=== PATIENT | male | born 1965 | race Caucasian/White ===

== ENCOUNTER 2017-08-07 05:56 | Emergency (ER) | payer OTHER, SELFPAY ==
[2017-08-07 05:59] VITALS: BP 141/92; PULSE 88; RESP 18; TEMP 36.6; O2SAT 97; BMI 33.2
[2017-08-07 06:00] VITALS: O2SAT 95
--- NOTE | 2017-08-07 06:05 | ED.VISSUMM ---
- ER Visit Summary Date of Service: 08/07/17 Chief Complaint: [] Cough History of Present Illness: The patient is a 52 M [] complaining of cough, sore throat, body aches during the peak of flu season. Patient denies fevers. Denies chest pain or shortness of breath. Reports he is supposed to be at his [employer] weekend drill but feels too ill to participate. Physical Examination: [] Afebrile, vital signs stable. Cardiovascular exam is regular rate and rhythm. Lungs are clear to auscultation. Abdomen is soft and nontender. Remainder of exam is unremarkable. Test Results: [] None. Emergency Department Course and Treatment: [] Patient has a benign presentation. Clear lung sounds. I do not feel that he warrants diagnostic imaging at this time. He was given a prescription for Tessalon Perles and a note for excuse her from work today. He was encouraged to hydrate and follow-up with his primary care physician. Treatment Plan: [] Follow-up with PCP. Disposition: [] Discharge, stable. Impression: [] URI This note was generated with [employer] dictation software. It may contain incorrect words, spelling, and punctuation that were not noted in review of the chart prior to signing ED Disposition - Plan for ED Patient: Chief Complaint: Cough [facility] [[facility] Provider] -
--- NOTE | 2017-08-07 06:08 | ED.DCSUM_ITS ---
- ER Visit Summary Date of Service: 08/07/17 Chief Complaint: [] Cough History of Present Illness: The patient is a 52 M [] complaining of cough, sore throat, body aches during the peak of flu season. Patient denies fevers. Denies chest pain or shortness of breath. Reports he is supposed to be at his [employer] weekend drill but feels too ill to participate. Physical Examination: [] Afebrile, vital signs stable. Cardiovascular exam is regular rate and rhythm. Lungs are clear to auscultation. Abdomen is soft and nontender. Remainder of exam is unremarkable. Test Results: [] None. Emergency Department Course and Treatment: [] Patient has a benign presentation. Clear lung sounds. I do not feel that he warrants diagnostic imaging at this time. He was given a prescription for Tessalon Perles and a note for excuse her from work today. He was encouraged to hydrate and follow-up with his primary care physician. Treatment Plan: [] Follow-up with PCP. Disposition: [] Discharge, stable. Impression: [] URI This note was generated with [employer] dictation software. It may contain incorrect words, spelling, and punctuation that were not noted in review of the chart prior to signing ED Disposition - Plan for ED Patient: Chief Complaint: Cough [facility] [[facility]] -
--- NOTE | 2017-08-07 06:08 | ED.DEP ---
ED Disposition - Plan for ED Patient: Disposition: Home or Assisted Living Chief Complaint: Cough Instructions: ED Upper Resp Infec No Abx Tx Prescriptions: Benzonatate [Tessalon Perle] 100 mg PO TID PRN PRN #15 cap PRN Reason: Cough [facility] [Primary [facility] Provider] -
[2017-08-07 06:09] VITALS: RESP 18
[2017-08-07] MEDS: Benzonatate 100 MG Capsule PO (06:30)
== END 2017-08-07 06:31 | disposition home or self-care (01) ==
LOC: ED 06:23
PROVIDERS: Emergency Provider Emergency Medicine
DX: J06.9 Acute upper respiratory infection, unspecified (principal); K21.9 Gastro-esophageal reflux disease without esophagitis; F32.9 Major depressive disorder, single episode, unspecified
CPT/HCPCS: 99282

== ENCOUNTER 2018-06-17 09:58 | Emergency (ER) | payer OTHER, SELFPAY ==
[2018-06-17 09:59] VITALS: BP 143/90; PULSE 98; RESP 20; TEMP 36.6; O2SAT 98; BMI 33.6
--- NOTE | 2018-06-17 10:11 | US_ITS ---
STUDY: SCROTUM ULTRASOUND REASON FOR EXAM: Male, 53 years old. Pain. TECHNIQUE: Ultrasound evaluation of the scrotum was performed with color Doppler and static felder-scale imaging. COMPARISON: None. FINDINGS: RIGHT TESTICLE INTRATESTICULAR: There is a normal size of the right testicle. The right testicle measures 3.8 x 2.6 x 2.1 cm. There is a homogenous echotexture. There is normal arterial and normal venous vascularity. There is no demonstrated right testicular mass or cyst. EXTRATESTICULAR: The epididymis is normal in size. The epididymis head measures 1.2 cm. There is normal vascularity of the epididymis. There is 0.6 cm cyst. There is a moderate size hydrocele. There is no demonstrated varicocele. There is no demonstrated extratesticular mass or cyst. LEFT TESTICLE INTRATESTICULAR: There is a normal size of the left testicle. The left testicle measures 3.4 x 2.6 x 2.2 cm. There is a homogenous echotexture. There is normal arterial and normal venous vascularity. There is no demonstrated left testicular mass or cyst. EXTRATESTICULAR: The epididymis is normal in size. The epididymis head measures 1.3 cm. There is normal vascularity of the epididymis. There is no demonstrated epididymal cystic structure. There is a moderate size hydrocele. There is 0.5 cm scrotal tamra. There is no demonstrated varicocele. There is no demonstrated extratesticular mass or cyst. US/Testicular with Arterial Flow IMPRESSION: There is no intratesticular mass. Normal blood flow. Bilateral hydroceles. Left scrotal tamra. Electronically Signed: Tacho Ibarra MD at 12:54 EST , Service support ,
--- NOTE | 2018-06-17 10:11 | CT_ITS ---
STUDY: CT ABDOMEN AND PELVIS WITH CONTRAST REASON FOR EXAM: Male, 53 years old. Abdominal pain. RADIATION DOSAGE (If Supplied By Facility): CTDIvol = ( 16.92 ) mGy, DLP = ( 1532.22 ) mGycm TECHNIQUE: Transaxial images were obtained from the dome of the diaphragm to the symphysis pubis with oral contrast. 100 ml of Isovue 300 contrast was administered. Sagittal and coronal images were reconstructed. Individualized dose optimization techniques were used for this CT. COMPARISON: Comparison is made with prior study dated April 22, 2015. FINDINGS: The visualized lung bases are unremarkable. The visualized portions of the heart are within normal limits. There is decreased attenuation of the liver consistent with steatosis. The patient is status post cholecystectomy. Normal spleen. Normal pancreas. Normal bilateral adrenal glands. Normal right kidney. Normal left kidney. There is a moderate sized hiatal hernia. Normal small intestine. There is diverticulosis, with thickening of the colon wall, and pericolonic inflammation changes consistent with acute diverticulitis. The appendix is visualized and appears normal. Normal abdominal aorta. Normal inferior vena cava. Normal retroperitoneum. Normal urinary bladder. There is a right-sided inguinal hernia containing adipose tissue. Normal osseous structures. CT/Abdomen/Pelvis WITH Contrast IMPRESSION: Findings in keeping with a noncomplicated sigmoid diverticulitis. Fatty infiltration of the liver. Electronically Signed: Silvio Hawkins MD at 12:38 EST Tel [phone], Service support ,
[2018-06-17] MEDS: Morphine 4 MG/ML Syringe IV (10:25)
[2018-06-17] MEDS: Ondansetron 4 MG/2 ML Vial IV (10:25)
[2018-06-17 10:34] LABS: Absolute Lymphocyte Count 1.36 X10^3/ul (0.83-4.51); Absolute Neutrophil Count 9.7 X10^3/uL (2.0-7.7); Basophil# 0.02 X10^3/uL; Basophil% 0.2 % (0-1); Eosinophil# 0.05 X10^3/uL; Eosinophils% 0.4 % (0-5); Hematocrit 46.4 % (40-54); Hemoglobin 15.7 g/dl (13.0-16.5); Lymphocyte # 1.36 X10^3/ul (4.0); Lymphocyte % 10.6 % (19-41); Mean Corp Hgb Conc 33.8 g/gl (32-36); Mean Corpuscular Hgb 30.4 pg (27.0-32.0); Mean Corpuscular Volume 89.9 fL (80-94); Mean Platelet Vol. 9.5 fl (6.2-12.0); Monocyte# 1.67 X10^3/uL; Neutrophil # 9.72 X10^3/uL (2.7-7.7); Neutrophil % 75.7 % (47-70); Platelet Count 201 K/mm3 (150-450); RBC Distribution Width CV 12.7 % (11.6-14.6); RBC Distribution Width SD 41.6 fl (35.1-43.9); Red Blood Count 5.16 M/mm3 (4.6-6.2); White Blood Count 12.8 K/mm3 (4.4-11.0)
[2018-06-17 10:35] LABS: Differential Indicated SCAN CRITERIA MET; POSITIVE COUNT NO; POSITIVE DIFFERENTIAL YES; POSITIVE MORPHOLOGY NO
[2018-06-17 10:42] LABS: Bacteria 0 SEEN /hpf (None Seen); Mucous, Urine 0 SEEN /hpf (<or=2+); Squamous Epithelial Cells - UA 0 SEEN /hpf (0-5); White Blood Cells 0 SEEN /hpf (0-5)
[2018-06-17 10:44] LABS: Anion Gap 10 (5-15); BUN 10 mg/dL (7-18); BUN/Creat Ratio 13.7 RATIO (10-20); Chloride 102 mmol/L (98-107); Creatinine, Serum 0.73 mg/dL (0.70-1.30); EST Glomerular Filtration Rate 119 mL/min (>60); Est Glom Filt Rate - Afr Amer 144 mL/min (>60); Estimated Creatinine Clearance 109.41 ml/min; Glucose 104 mg/dL (74-106); Potassium 3.8 mmol/L (3.5-5.1); Sodium Level 138 mmol/L (136-145)
[2018-06-17 10:44] LABS: Color, Urine Yellow (Yellow); Glucose, Dipstick Normal (Normal); Ketone-Dipstick Negative (Negative); Leukocyte Esterase-Dipstick Negative /ul (Negative); Nitrite-Dipstick Negative (Negative); Occult Blood-Urine 25 /ul (Negative); Protein-Dipstick Negative (Negative); Urine Bilirubin Dipstick Negative (Negative); Urine Clarity Clear (Clear); Urine Urobilinogen Normal (Normal)
[2018-06-17 10:50] LABS: Red Blood Cells-Urine 0-5 SEEN /hpf (0-5)
--- NOTE | 2018-06-17 10:52 | ED.DCSUM_ITS ---
- ER Visit Summary Date of Service: 06/17/18 Chief Complaint: Abdominal pain History of Present Illness: The patient is a 53 M presenting with abdominal pain. Patient states this started last night. He has pain in his lower abdomen and lower left side. He has pain with urination. He has a history of div erticulitis. He denies fever. Denies nausea, vomiting, diarrhea. Denies constipation. Denies blood in his stool. Denies other complaints. Physical Examination: Vitals are stable. Patient is afebrile. Alert no acute distress. HEENT exam is unremarkable. Neck is supple. Lungs are clear and equal bilaterally. Heart is regular rate and rhythm. Abdomen is soft suprapubic and left lower quadrant tenderness with no rebound or guarding : Left testicular tenderness, normal lie Extremities are unremarkable. Skin is warm and dry. No focal neurologic deficit. Remainder of exam is unremarkable. Emergency Department Course and Treatment: Patient given morphine, Zofran. CBC shows white count 12.8. Chemistries unremarkable. Urinalysis unremarkable. CT abdomen pelvis with IV and oral contrast shows findings in keeping with a noncomplicated sigmoid diverticulitis. Fatty infiltration of the liver. Testicular ultrasound shows there is no intratesticular mass. Normal blood flow. Bilateral hydroceles. Left scrotal tamra. On reevaluation, patient is resting comfortably and is feeling improved. He is given Cipro and Flagyl and a prescription for Cipro and Flagyl. He is advised to follow-up with his primary care physician at the [facility]. Advised return to the ED for worsening complaints. Disposition: Discharge home Impression: Diverticulitis This note was generated with [employer] dictation software. It may contain incorrect words, spelling, and punctuation that were not noted in review of the chart prior to signing ED Disposition - Plan for ED Patient: Chief Complaint: Abd Pain Instructions: ED Diverticulitis Prescriptions: Metronidazole [Flagyl] 500 mg PO Q8H #21 tablet Ciprofloxacin [Cipro] 500 mg PO BID #14 tablet Referrals: [facility] [Primary Care Provider] -
[2018-06-17 10:57] LABS: Reactive Lymphocyte RARE
[2018-06-17 12:17] VITALS: BP 165/94; PULSE 89; RESP 16; O2SAT 98
--- NOTE | 2018-06-17 13:16 | ED.DEP ---
ED Disposition - Plan for ED Patient: Chief Complaint: Abd Pain Instructions: ED Diverticulitis Prescriptions: Metronidazole [Flagyl] 500 mg PO Q8H #21 tablet Ciprofloxacin [Cipro] 500 mg PO BID #14 tablet [facility] [[facility]] -
[2018-06-17] MEDS: Ciprofloxacin 500 MG Tablet PO (13:34)
[2018-06-17] MEDS: metroNIDAZOLE 500 MG Tablet PO (13:34)
[2018-06-17 13:37] VITALS: PULSE 92; RESP 16; O2SAT 97
== END 2018-06-17 13:38 | disposition home or self-care (01) ==
PROVIDERS: Emergency Provider Emergency Medicine
DX: K57.32 Diverticulitis of large intestine without perforation or abscess without bleeding (principal); K76.0 Fatty (change of) liver, not elsewhere classified; N43.3 Hydrocele, unspecified; K21.9 Gastro-esophageal reflux disease without esophagitis; Z79.899 Other long term (current) drug therapy
CPT/HCPCS: 74177; 76870; 80048; 81001; 85025; 93976; 96374; 96375; 99285; Q9967; A4216; J2405

== ENCOUNTER 2018-12-06 08:45 | Emergency (ER) | payer OTHER, SELFPAY ==
[2018-12-06 08:46] VITALS: BP 152/103; PULSE 84; RESP 18; TEMP 36.6; O2SAT 96; BMI 35.2
--- NOTE | 2018-12-06 09:11 | CT_ITS ---
STUDY: CT ABDOMEN AND PELVIS WITHOUT CONTRAST REASON FOR EXAM: Male, 53 years old. Right flank pain with radiation towards the anterior aspect of the body. History of kidney stones. RADIATION DOSAGE (If Supplied By Facility): CTDIvol = ( 14.01 ) mGy, DLP = ( 766.63 ) mGycm TECHNIQUE: Transaxial images were obtained from the dome of the diaphragm to the symphysis pubis without oral contrast, and without intravenous contrast. Sagittal and coronal images were reconstructed. Individualized dose optimization techniques were used for this CT. COMPARISON: Comparison is made with prior study dated June 17, 2018. FINDINGS: Increased markings at the lung bases suggestive of linear atelectasis and/or scarring. The visualized portions of the heart are within normal limits. Normal liver. The patient is status post cholecystectomy. Normal spleen. Normal pancreas. Normal bilateral adrenal glands. Normal right kidney. Punctate calcification is seen in the distal portion of the right ureter just proximal to the ureterovesical junction. Normal left kidney. Moderate sized hiatal hernia. Normal small intestine. There are multiple colonic diverticula consistent with diverticulosis. Small lymph nodes are seen within the sigmoid mesentery. The appendix is visualized and appears normal. There is scattered atherosclerotic calcification of the abdominal aorta, without a demonstrated aneurysm. Normal inferior vena cava. Normal retroperitoneum. Normal urinary bladder. Small bilateral inguinal hernias containing fat. There are diffuse degenerative changes of the visualized lumbar spine. CT/Abdomen/Pelvis without Cont IMPRESSION: Punctate calcification in the distal right ureter just proximal to the ureterovesical junction. Sigmoid diverticulosis. Electronically Signed: Silvio Hawkins, at 9:58 EDT , Service support ,
--- NOTE | 2018-12-06 09:12 | ED.VISSUMM ---
- ER Visit Summary Date of Service: 12/06/18 Chief Complaint: Back pain History of Present Illness: The patient is a 53 M who presents for 4 days of right-sided back pain. Patient states he was prying something at work and suddenly felt a pop with back pain on the right thoracic region. Pain has gradually worsened. It is worse with movement, deep breathing, cough and sneezing. No dysuria, hematuria, frequency or urgency. Patient stated his urinary stream was stronger for 2 days after the pain started. Patient also has some radiation of the pain around to the right mid abdomen. No numbness or weakness in the legs. No bowel or bladder incontinence or retention. No saddle anesthesia. Physical Examination: Vital signs: afebrile, hemodynamically stable, no hypoxia on room air General: well nourished, well developed, in no distress Skin: warm, dry, no rash, no pallor HEENT: normocephalic and atraumatic; PERRL, EOMI, moist mucous membranes Cardiovascular: regular rate and rhythm without murmurs, no peripheral edema, 2+ pulses all distal extremities Respiratory: No increased work of breathing, lungs are clear to auscultation bilaterally, no rales, rhonchi or wheezing Abdominal: Abdomen is soft, mild tenderness to palpation of the right flank, with normoactive bowel sounds, no guarding or rebound, no masses, no CVA tenderness MSK: Moves all extremities, no deformities, normal strength, no midline tenderness deformities or step-offs of the thoracic or lumbar spine, no lumbar paraspinal tenderness, positive tenderness along palpation of the right lateral thoracic back and lower rib margin Neuro: Awake and alert, oriented ?4. No facial droop, sensation and motor function intact and symmetric Test Results: Abnormal Lab Results 12/06/18 12/06/18 12/06/18 09:20 09:20 10:00 WBC 6.7 RBC 4.98 Hgb 14.9 Hct 44.6 MCV 89.6 MCH 29.9 MCHC 33.4 RDW 13.0 RDW Differential 42.4 Plt Count 187 MPV 10.3 Immature Gran % (Auto) 0.100 Neut % (Auto) 58.5 Lymph % (Auto) 24.6 [place] % (Auto) 13.7 H Eos % (Auto) 2.8 Baso % (Auto) 0.3 Absolute Neuts (auto) 3.9 Absolute Lymphs (auto) 1.65 Total Counted Not Reportable Sodium 139 Potassium 4.0 Chloride 106 Carbon Dioxide 30.0 Anion Gap 3 L BUN 9 Creatinine 0.75 Estim Creat Clear Calc 106.49 Est GFR (MDRD) Af Amer 139 Est GFR (MDRD) Non-Af 115 BUN/Creatinine Ratio 12.0 Glucose 95 Calcium 8.9 Urine Color Yellow Urine Clarity Clear Urine pH 6.0 Ur Specific [place] 1.015 Urine Protein Negative Urine Glucose (UA) Normal Urine Ketones Negative Urine Occult Blood 10 H Urine Nitrite Negative Urine Bilirubin Negative Urine Urobilinogen Normal Ur Leukocyte Esterase Negative Urine RBC 0-5 SEEN Urine WBC 0 SEEN Ur Squamous Epith Cells 0 SEEN Urine Bacteria 0 SEEN Urine Mucus RARE Clinical Impression(s) from Imaging Studies Abdomen/Pelvis CT 12/06/18 09:11 IMPRESSION: Punctate calcification in the distal right ureter just proximal to the ureterovesical junction. Sigmoid diverticulosis. Electronically Signed: Silvio Hawkins, at 9:58 EDT , Service support , Chest X-Ray 12/06/18 09:35 IMPRESSION: Moderate sized hiatal hernia. Electronically Signed: Silvio Hawkins, at 9:54 EDT , Service support , Medications Given Discontinued Medications Hydrocodone Bitart/Acetaminophen (Sterrett 5mg-325mg) 1 tablet PO X1 ONE Stop: 12/06/18 10:33 Last Admin: 12/06/18 10:55 Dose: 1 tablet Emergency Department Course and Treatment: Patient was offered and declined pain medications. Patient does have a history and physical exam concerning for a musculoskeletal origin of his pain. However because he has having some radiation in the the abdomen, and did have some brief urinary changes, a CT flank was performed to evaluate for any intra-abdominal process including a kidney stone. Patient's labs showed no leukocytosis, no renal derangement, and urinalysis did show trace hematuria. Chest x-ray was performed that showed a moderate hiatal hernia. CT flank showed a punctate ureteral stone at the UVJ junction. No hydronephrosis or hydroureter. Patient was reevaluated and did accept a Sterrett for his severe pain. We discussed that he may have injured his back when he was doing the prying at work, however he also does have the finding of the very small kidney stone at the UVJ junction that may be an incidental finding or may have also contributed to his symptoms. Patient was given a prescription for Percocet and naproxen for his back pain. He was discharged home with symptoms improved. Treatment Plan: [] Disposition: [] Impression: Right ureteral colic, right back strain This note was generated with [employer] dictation software. It may contain incorrect words, spelling, and punctuation that were not noted in review of the chart prior to signing ED Disposition - Plan for ED Patient: Disposition: Home or Assisted Living Instructions: ED Sprain Thoracic Spine, ED Stone Renal W Colic Prescriptions: Oxycodone HCl/Acetaminophen [Percocet 5/325] 1 tab PO Q6H PRN PRN 3 Days #12 tab PRN Reason: Pain RX: Naproxen [Naprosyn] 500 mg PO BID PRN #20 tab [facility]errals[facility] [Primary [facility] Provider] - 3-5 Days if not improving Additional Instructions: Use the naproxen as needed for mild to moderate pain in the Percocet for severe pain. Please follow-up with your doctor if you are not having improvement in 3 to 5 days. If you have any worsening of your condition or any new concerning symptoms, please return immediately to the emergency department for another evaluation.
--- NOTE | 2018-12-06 09:16 | ED.DCSUM_ITS ---
- ER Visit Summary Date of Service: 12/06/18 Chief Complaint: Back pain History of Present Illness: The patient is a 53 M who presents for 4 days of right-sided back pain. Patient states he was prying something at work and suddenly felt a pop with back pain on the right thoracic region. Pain has gradually worsened. It is worse with movement, deep breathing, cough and sneezing. No dysuria, hematuria, frequency or urgency. Patient stated his urinary stream was stronger for 2 days after the pain started. Patient also has some radiation of the pain around to the right mid abdomen. No numbness or weakness in the legs. No bowel or bladder incontinence or retention. No saddle anesthesia. Physical Examination: Vital signs: afebrile, hemodynamically stable, no hypoxia on room air General: well nourished, well developed, in no distress Skin: warm, dry, no rash, no pallor HEENT: normocephalic and atraumatic; PERRL, EOMI, moist mucous membranes Cardiovascular: regular rate and rhythm without murmurs, no peripheral edema, 2+ pulses all distal extremities Respiratory: No increased work of breathing, lungs are clear to auscultation bilaterally, no rales, rhonchi or wheezing Abdominal: Abdomen is soft, mild tenderness to palpation of the right flank, with normoactive bowel sounds, no guarding or rebound, no masses, no CVA tenderness MSK: Moves all extremities, no deformities, normal strength, no midline tenderness deformities or step-offs of the thoracic or lumbar spine, no lumbar paraspinal tenderness, positive tenderness along palpation of the right lateral thoracic back and lower rib margin Neuro: Awake and alert, oriented ?4. No facial droop, sensation and motor function intact and symmetric Test Results: Abnormal Lab Results 12/06/18 12/06/18 12/06/18 09:20 09:20 10:00 WBC 6.7 RBC 4.98 Hgb 14.9 Hct 44.6 MCV 89.6 MCH 29.9 MCHC 33.4 RDW 13.0 RDW Differential 42.4 Plt Count 187 MPV 10.3 Immature Gran % (Auto) 0.100 Neut % (Auto) 58.5 Lymph % (Auto) 24.6 [place] % (Auto) 13.7 H Eos % (Auto) 2.8 Baso % (Auto) 0.3 Absolute Neuts (auto) 3.9 Absolute Lymphs (auto) 1.65 Total Counted Not Reportable Sodium 139 Potassium 4.0 Chloride 106 Carbon Dioxide 30.0 Anion Gap 3 L BUN 9 Creatinine 0.75 Estim Creat Clear Calc 106.49 Est GFR (MDRD) Af Amer 139 Est GFR (MDRD) Non-Af 115 BUN/Creatinine Ratio 12.0 Glucose 95 Calcium 8.9 Urine Color Yellow Urine Clarity Clear Urine pH 6.0 Ur Specific [place] 1.015 Urine Protein Negative Urine Glucose (UA) Normal Urine Ketones Negative Urine Occult Blood 10 H Urine Nitrite Negative Urine Bilirubin Negative Urine Urobilinogen Normal Ur Leukocyte Esterase Negative Urine RBC 0-5 SEEN Urine WBC 0 SEEN Ur Squamous Epith Cells 0 SEEN Urine Bacteria 0 SEEN Urine Mucus RARE Clinical Impression(s) from Imaging Studies Abdomen/Pelvis CT 12/06/18 09:11 IMPRESSION: Punctate calcification in the distal right ureter just proximal to the ureterovesical junction. Sigmoid diverticulosis. Electronically Signed: Silvio Hawkins, at 9:58 EDT , Service support , Chest X-Ray 12/06/18 09:35 IMPRESSION: Moderate sized hiatal hernia. Electronically Signed: Silvio Hawkins, at 9:54 EDT , Service support , Medications Given Discontinued Medications Hydrocodone Bitart/Acetaminophen (Roy 5mg-325mg) 1 tablet PO X1 ONE Stop: 12/06/18 10:33 Last Admin: 12/06/18 10:55 Dose: 1 tablet Emergency Department Course and Treatment: Patient was offered and declined pain medications. Patient does have a history and physical exam concerning for a musculoskeletal origin of his pain. However because he has having some radiation in the the abdomen, and did have some brief urinary changes, a CT flank was performed to evaluate for any intra-abdominal process including a kidney stone. Patient's labs showed no leukocytosis, no renal derangement, and urinalysis did show trace hematuria. Chest x-ray was performed that showed a moderate hiatal hernia. CT flank showed a punctate ureteral stone at the UVJ junction. No hydronephrosis or hydroureter. Patient was reevaluated and did accept a Roy for his severe pain. We discussed that he may have injured his back when he was doing the prying at work, however he also does have the finding of the very small kidney stone at the UVJ junction that may be an incidental finding or may have also contributed to his symptoms. Patient was given a prescription for Percocet and naproxen for his back pain. He was discharged home with symptoms improved. Treatment Plan: [] Disposition: [] Impression: Right ureteral colic, right back strain This note was generated with [employer] dictation software. It may contain incorrect words, spelling, and punctuation that were not noted in review of the chart prior to signing ED Disposition - Plan for ED Patient: Disposition: Home or Assisted Living Instructions: ED Sprain Thoracic Spine, ED Stone Renal W Colic Prescriptions: Oxycodone HCl/Acetaminophen [Percocet 5/325] 1 tab PO Q6H PRN PRN 3 Days #12 tab PRN Reason: Pain RX: Naproxen [Naprosyn] 500 mg PO BID PRN #20 tab [facility]errals[facility] [Primary [facility] Provider] - 3-5 Days if not improving Additional Instructions: Use the naproxen as needed for mild to moderate pain in the Percocet for severe pain. Please follow-up with your doctor if you are not having improvement in 3 to 5 days. If you have any worsening of your condition or any new concerning symptoms, please return immediately to the emergency department for another evaluation.
[2018-12-06 09:29] LABS: Absolute Lymphocyte Count 1.65 X10^3/ul (0.83-4.51); Absolute Neutrophil Count 3.9 X10^3/uL (2.0-7.7); Basophil# 0.02 X10^3/uL; Basophil% 0.3 % (0-1); Eosinophil# 0.19 X10^3/uL; Eosinophils% 2.8 % (0-5); Hematocrit 44.6 % (40-54); Hemoglobin 14.9 g/dl (13.0-16.5); Lymphocyte # 1.65 X10^3/ul (4.0); Lymphocyte % 24.6 % (19-41); Mean Corp Hgb Conc 33.4 g/gl (32-36); Mean Corpuscular Hgb 29.9 pg (27.0-32.0); Mean Corpuscular Volume 89.6 fL (80-94); Mean Platelet Vol. 10.3 fl (6.2-12.0); Monocyte# 0.92 X10^3/uL; Monocyte% 13.7 % (0-10); Neutrophil # 3.91 X10^3/uL (2.7-7.7); Neutrophil % 58.5 % (47-70); Platelet Count 187 K/mm3 (150-450); RBC Distribution Width SD 42.4 fl (35.1-43.9); Red Blood Count 4.98 M/mm3 (4.6-6.2); White Blood Count 6.7 K/mm3 (4.4-11.0)
[2018-12-06 09:30] LABS: POSITIVE COUNT NO; POSITIVE DIFFERENTIAL NO; POSITIVE MORPHOLOGY NO
--- NOTE | 2018-12-06 09:35 | RAD_ITS ---
STUDY: X-RAY CHEST REASON FOR EXAM: Male, 53 years old. Chest pain and back pain. TECHNIQUE: PA and lateral views of the chest. COMPARISON: Comparison is made with prior chest radiograph dated May 03, 2015. FINDINGS: The lungs are clear and expanded. There is no demonstrated pleural abnormality. There is borderline cardiomegaly. Normal mediastinum and won. Normal visualized pulmonary arteries. Normal visualized aortic arch and descending thoracic aorta. There are degenerative changes of the visualized thoracic spine. Normal visualized ribs, clavicles, and shoulders. Moderate sized hiatal hernia. RAD/Chest PA and Lateral IMPRESSION: Moderate sized hiatal hernia. Electronically Signed: Silvio Hawkins, at 9:54 EDT , Service support ,
[2018-12-06 09:40] LABS: Anion Gap 3 (5-15); BUN 9 mg/dL (7-18); Calcium,Total 8.9 mg/dL (8.5-10.1); Chloride 106 mmol/L (98-107); Creatinine, Serum 0.75 mg/dL (0.70-1.30); EST Glomerular Filtration Rate 115 mL/min (>60); Est Glom Filt Rate - Afr Amer 139 mL/min (>60); Estimated Creatinine Clearance 106.49 ml/min; Glucose 95 mg/dL (74-106); Sodium Level 139 mmol/L (136-145)
[2018-12-06 10:21] LABS: Bacteria 0 SEEN /hpf (None Seen); Squamous Epithelial Cells - UA 0 SEEN /hpf (0-5); White Blood Cells 0 SEEN /hpf (0-5)
[2018-12-06 10:26] LABS: Color, Urine Yellow (Yellow); Glucose, Dipstick Normal (Normal); Ketone-Dipstick Negative (Negative); Leukocyte Esterase-Dipstick Negative /ul (Negative); Nitrite-Dipstick Negative (Negative); Occult Blood-Urine 10 /ul (Negative); Protein-Dipstick Negative (Negative); Specific Gravity, Urine 1.015 (1.002-1.030); Urine Bilirubin Dipstick Negative (Negative); Urine Clarity Clear (Clear); Urine Urobilinogen Normal (Normal)
[2018-12-06 10:34] LABS: Mucous, Urine RARE /hpf (<or=2+); Red Blood Cells-Urine 0-5 SEEN /hpf (0-5)
[2018-12-06] MEDS: HYDROcodone Bitartrate/Apap 5/325 Tablet PO (10:55)
[2018-12-06 10:58] VITALS: BP 165/111; PULSE 71; RESP 16; O2SAT 98
== END 2018-12-06 10:58 | disposition home or self-care (01) ==
PROVIDERS: Emergency Provider Emergency Medicine
DX: N20.1 Calculus of ureter (principal); K44.9 Diaphragmatic hernia without obstruction or gangrene; S29.012A Strain of muscle and tendon of back wall of thorax, initial encounter; X58.XXXA Exposure to other specified factors, initial encounter; Y93.89 Activity, other specified; Y92.9 Unspecified place or not applicable; Y99.0 Civilian activity done for income or pay
CPT/HCPCS: 71046; 74176; 80048; 81001; 85025; 99285; A4216

== ENCOUNTER 2019-02-10 20:15 | Emergency (ER) | payer OTHER, SELFPAY ==
[2019-02-10 20:17] VITALS: BP 141/107; PULSE 106; RESP 18; TEMP 36.6; O2SAT 95; BMI 32.3
--- NOTE | 2019-02-10 20:45 | ED.DCSUM_ITS ---
History of Present Illness Chief Complaint: General Illness Detail of Chief Complaint: Diarrhea, decreased appetite Informant: Patient, Family Onset: Days Current Severity: Moderate Maximum Severity: Moderate Narrative: Patient presents with poor appetite over the past 4 days. He states that he does want to lay in bed all day on Wednesday. Wednesday he developed diarrhea and has not had multiple episodes of the last 3 days. He denies blood associated with the stool. He has been forcing himself to eat and drink and has not had vomiting. Past surgical history is significant for hiatal hernia repair. Past Medical History - Allergies and Home Meds Allergies/Adverse Reactions: Allergies sertraline [From Zoloft] Allergy (Verified 02/10/19 20:20) Other Primary Care Physician: [facility] [Primary Care Provider] - Prior records reviewed: Yes Past Medical History: - - Reviewed Surgical History: - - Hiatal hernia repair Lives: Spouse/ Significant Other Smoking Status: Former smoker Review of Systems General: Denies: Chills, Fever Eyes: Denies: Visual changes - bilaterally ENT: Denies: Bilateral ear pain Cardiovascular: Denies: Chest pain, Palpitations Respiratory: Denies: Dyspnea, Cough Gastrointestinal: Reports: Nausea, Diarrhea. Denies: Vomiting Genitourinary: Reports: Dysuria Musculoskeletal: Denies: Neck pain, Back pain Skin: Denies: Rash Neurological: Denies: Parasthesia, Numbness Endocrine: Denies: Polyuria Hematologic: Denies: Easy bruising Allergy: Denies: Uticaria Physical Exam Vital Signs/Narrative: Vital Signs Temp Pulse Resp BP Pulse Ox 02/10/19 20:17 97.8 F 106 H 18 141/107 H 95 Inital Vital Signs reviewed: Yes General: Well nourished, Well developed Eyes: Perrl ENT: Moist mucous membranes Neck: Supple Cardiovascular: Regular rate, Regular rhythm Respiratory: No distress, CTA bilaterally Abdomen: Soft, Nontender, Hypoactive bowel sounds Extremities: Nontender, No edema Skin: Normal color Neurological: Alert, Oriented x3 Psychological: - - Flat affect Diagnostic/Tx/Re-eval Laboratory Results 02/10/19 02/10/19 02/10/19 20:50 20:50 21:10 WBC 9.5 RBC 5.65 Hgb 17.1 H Hct 50.8 MCV 89.9 MCH 30.3 MCHC 33.7 RDW Std Deviation 40.4 RDW Coeff of Ronnell 12.3 Plt Count 229 MPV 9.9 Immature Gran % (Auto) 0.400 Neut % (Auto) 75.2 H Lymph % (Auto) 14.8 L Allen % (Auto) 9.0 Eos % (Auto) 0.3 Baso % (Auto) 0.3 Absolute Neuts (auto) 7.1 Absolute Lymphs (auto) 1.40 Nucleated RBC % 0 Sodium 137 Potassium 4.4 Chloride 101 Carbon Dioxide 30.0 Anion Gap 6 BUN 13 Creatinine 0.96 Estim Creat Clear Calc 82.24 Est GFR (MDRD) Af Amer 106 Est GFR (MDRD) Non-Af 87 BUN/Creatinine Ratio 13.6 Glucose 104 Calcium 9.4 Total Bilirubin 0.70 Direct Bilirubin 0.22 AST 7 L ALT 19 Alkaline Phosphatase 73 Total Protein 8.2 Albumin 4.1 Globulin 4.1 Lipase 69 L Urine Color Yellow Urine Clarity Clear Urine pH 6.0 Ur Specific [place] 1.015 Urine Protein Negative Urine Glucose (UA) Normal Urine Ketones 50 H Urine Occult Blood 25 H Urine Nitrite Negative Urine Bilirubin Negative Urine Urobilinogen Normal Ur Leukocyte Esterase Negative Urine RBC 0 SEEN Urine WBC 0 SEEN Ur Squamous Epith Cells 0 SEEN Urine Bacteria RARE Urine Mucus 0 SEEN - Medical Decision Making Patient was given IV fluids. Postvoid residual bladder scan revealed 75 cc of urine. There is no sign of infection in his urine. He has been up to the restroom to urinate and additional time during this ED visit. We discussed dehydration. He also has anxiety which he states he feels is worse because of his current GI illness. He will be discharged home with work note for today and tomorrow. He is encouraged to increase p.o. fluids. Pressure was noted to be high on re-eval. states is been running high for a while now but seems to fluctuate. She has a blood pressure cuff at home and will measure it a couple times a week and keep a journal to discuss with his primary care doctor. ED Disposition - Plan for ED Patient: Disposition: Home or Assisted Living Diagnosis: Dehydration, Gastroenteritis Instructions: GASTROENTERITIS, Viral (6y-Adult), DEHYDRATION (6y-Adult) Referrals: [facility] [Primary Care Provider] - 1-2 Weeks
[2019-02-10 20:52] VITALS: BP 104/76; PULSE 97; RESP 18; TEMP 37.2; O2SAT 98
[2019-02-10 20:59] LABS: Absolute Neutrophil Count 7.1 X10^3/uL (2.0-7.7); Basophil# 0.03 X10^3/uL; Basophil% 0.3 % (0-1); Eosinophil# 0.03 X10^3/uL; Eosinophils% 0.3 % (0-5); Hematocrit 50.8 % (40-54); Hemoglobin 17.1 g/dL (13.0-16.5); Lymphocyte % 14.8 % (19-41); Mean Corp Hgb Conc 33.7 g/dL (32-36); Mean Corpuscular Hgb 30.3 pg (27.0-32.0); Mean Corpuscular Volume 89.9 fL (80-94); Mean Platelet Vol. 9.9 fl (6.2-12.0); Monocyte# 0.85 X10^3/uL; NRBC Flagged by Analyzer 0 % (0-5); Neutrophil # 7.12 X10^3/uL (2.7-7.7); Neutrophil % 75.2 % (47-70); Platelet Count 229 K/mm3 (150-450); RBC Distribution Width CV 12.3 % (11.6-14.6); RBC Distribution Width SD 40.4 fl (35.1-43.9); Red Blood Count 5.65 M/mm3 (4.6-6.2); White Blood Count 9.5 K/mm3 (4.4-11.0)
[2019-02-10] MEDS: 0.9% Normal Saline 1,000 ML 1000 ML IV (21:04)
[2019-02-10 21:14] LABS: Mucous, Urine 0 SEEN /hpf (<or=2+); Red Blood Cells-Urine 0 SEEN /hpf (0-5); Squamous Epithelial Cells - UA 0 SEEN /hpf (0-5); White Blood Cells 0 SEEN /hpf (0-5)
[2019-02-10 21:22] LABS: Color, Urine Yellow (Yellow); Glucose, Dipstick Normal (Normal); Ketone-Dipstick 50 mg/dl (Negative); Leukocyte Esterase-Dipstick Negative /ul (Negative); Nitrite-Dipstick Negative (Negative); Occult Blood-Urine 25 /ul (Negative); Protein-Dipstick Negative (Negative); Specific Gravity, Urine 1.015 (1.002-1.030); Urine Bilirubin Dipstick Negative (Negative); Urine Clarity Clear (Clear); Urine Urobilinogen Normal (Normal)
[2019-02-10 21:24] LABS: AST(SGOT) 7 U/L (15-37); Alanine Aminotransfer ALT/SGPT 19 U/L (16-61); Albumin, Serum 4.1 g/dL (3.2-5.0); Alkaline Phosphatase 73 U/L (45-117); Anion Gap 6 (5-15); BUN 13 mg/dL (7-18); BUN/Creat Ratio 13.6 RATIO (10-20); Bilirubin, Direct 0.22 mg/dL (0.00-0.30); Calcium,Total 9.4 mg/dL (8.5-10.1); Chloride 101 mmol/L (98-107); Creatinine, Serum 0.96 mg/dL (0.70-1.30); EST Glomerular Filtration Rate 87 mL/min (>60); Est Glom Filt Rate - Afr Amer 106 mL/min (>60); Estimated Creatinine Clearance 82.24 ml/min; Globulin 4.1 g/dL (2.2-4.2); Glucose 104 mg/dL (74-106); Lipase 69 U/L (73-393); Potassium 4.4 mmol/L (3.5-5.1); Protein, Total 8.2 g/dL (6.4-8.2); Sodium Level 137 mmol/L (136-145)
[2019-02-10 21:28] LABS: Bacteria RARE /hpf (None Seen)
[2019-02-10] MEDS: 0.9% Normal Saline 1,000 ML 150 ML IV (22:12)
[2019-02-10 23:10] VITALS: BP 158/99; PULSE 84; RESP 14; O2SAT 94
== END 2019-02-10 23:11 | disposition home or self-care (01) ==
PROVIDERS: Emergency Provider Emergency Medicine
DX: K52.9 Noninfective gastroenteritis and colitis, unspecified (principal); E86.0 Dehydration; R03.0 Elevated blood-pressure reading, without diagnosis of hypertension; Z87.891 Personal history of nicotine dependence
CPT/HCPCS: 80048; 80076; 81001; 83690; 85025; 96360; 96361; 99283; J7030; A4216

== ENCOUNTER 2019-06-24 18:36 | Emergency (ER) | payer OTHER, SELFPAY ==
[2019-06-24 18:37] VITALS: BP 147/107; PULSE 94; RESP 16; TEMP 36.8; O2SAT 99; BMI 33.8
[2019-06-24 19:13] LABS: Bacteria 0 SEEN /hpf (None Seen); Mucous, Urine 0 SEEN /hpf (<or=2+); Squamous Epithelial Cells - UA 0 SEEN /hpf (0-5); White Blood Cells 0 SEEN /hpf (0-5)
[2019-06-24 19:16] LABS: Color, Urine Yellow (Yellow); Glucose, Dipstick Normal (Normal); Ketone-Dipstick Negative (Negative); Leukocyte Esterase-Dipstick Negative /ul (Negative); Nitrite-Dipstick Negative (Negative); Occult Blood-Urine Negative /ul (Negative); Protein-Dipstick Negative (Negative); Urine Bilirubin Dipstick Negative (Negative); Urine Clarity Clear (Clear); Urine Urobilinogen Normal (Normal)
[2019-06-24 19:32] LABS: Red Blood Cells-Urine 0-5 SEEN /hpf (0-5)
--- NOTE | 2019-06-24 20:18 | CT_ITS ---
HISTORY:FLANK PAIN, RT SIDE 6 EXAMINATION: CT Abdomen And Pelvis W/O Contrast Injection TECHNIQUE: Helically acquired images were obtained of the abdomen and pelvis without oral or IV contrast as per renal stone protocol. A radiation dose optimization technique was used for this scan. IV Contrast dosage and agent: None. Oral contrast: None. COMPARISON: December 06, 2018 FINDINGS: LOWER CHEST: Lung bases are clear. No cardiomegaly or pericardial effusion. LIVER: Homogeneous. No focal mass. hepatomegaly GALLBLADDER AND BILIARY TREE: Cholecystectomy No intra- or extrahepatic biliary ductal dilation. PANCREAS: No focal cystic or solid mass. Mild steatosis SPLEEN: Normal size without focal cystic or solid mass. ADRENAL GLANDS: No nodules. KIDNEYS AND URETERS: No hydronephrosis involving the right kidney or nephrolithiasis. The right ureter is not distended Extrarenal pelvis is seen involving the left kidney. The left ureter is not distended. There are no stones seen within the left ureter. PERITONEUM: No ascites or free air. No other fluid collection. BOWEL: There is a moderate hiatal hernia that was present on the prior study. Small bowel is unremarkable Diverticulosis without evidence of diverticulitis There is questionable mild wall thickening involving the ascending colon. Correlate clinically for colitis. No surrounding fat stranding. The appendix is unremarkable LYMPH NODES: No enlarged mesenteric or retroperitoneal lymph nodes. VESSELS: Aorta is non-dilated. URINARY BLADDER: Unremarkable. REPRODUCTIVE ORGANS: No pelvic masses. ABDOMINAL WALL: Fat-containing inguinal hernias similar to prior study right greater than left. There is also a small fat-containing umbilical hernia BONES: No acute osseous abnormality CT/Abdomen/Pelvis without Cont IMPRESSION: No hydronephrosis or nephrolithiasis There is questionable wall thickening involving the ascending colon. Correlate clinically for colitis No evidence of appendicitis Diverticulosis without evidence of diverticulitis Cholecystectomy Moderate hiatal hernia similar to prior study Fat-containing inguinal hernias similar to prior study Hepatomegaly Mild pancreatic steatosis Individualized dose optimization techniques were used for this CT. at 2155 Reported and signed by: Tara Phillips DO Electronically Signed: Tara Phillips DO at 21:54 EST Tel , Service support ,
--- NOTE | 2019-06-24 22:01 | ED.VISSUMM ---
- ER Visit Summary Date of Service: 06/24/19 Chief Complaint: Right flank pain History of Present Illness: The patient is a 54 M who presents with right flank pain that began today. Patient states it began suddenly. Patient states the pain is in the right lower flank and radiates into his right groin. Patient states his pain is worse with movement. Patient denies any improvement of his pain. Patient admits to nausea but denies any vomiting. Patient denies any dysuria or hematuria. Patient states his pain is similar to prior kidney stones. Physical Examination: Vital signs are stable. Patient is afebrile. Patient is in no acute distress. Oral mucosa is pink and moist. Neck is supple. Trachea is midline. There is no JVD. Heart was regular rate and rhythm. Lungs are clear and equal bilaterally. Abdomen is soft. Bowel sounds are normal. There is no tenderness. There is no CVA tenderness. Cranial nerves II through XII are intact. There are no focal motor or sensory deficits noted. Test Results: Urinalysis was obtained and was within normal limits. CT scan of the flank was obtained. There is no hydronephrosis or nephrolithiasis. There is no evidence of appendicitis. There is some questionable wall thickening of the ascending colon. Emergency Department Course and Treatment: Patient was feeling better on reevaluation. Patient was advised of his findings. Patient was instructed to eat a bland diet. Patient was instructed to follow-up with his primary care physician in 5 to 7 days. Patient understood and was agreeable with the plan. All questions were answered. Disposition: Discharge home Impression: Right flank pain This note was generated with [employer] dictation software. It may contain incorrect words, spelling, and punctuation that were not noted in review of the chart prior to signing ED Disposition - Plan for ED Patient: Disposition: Home or Assisted Living Diagnosis: Right flank pain Instructions: FLANK PAIN, Uncertain Cause Referrals: [facility] [Primary Care Provider] - 5-7 Days Regulo Robin MD [NON-STAFF] - 5-7 Days Erlin Pham MD [STAFF PHYSICIAN] - As Needed
[2019-06-24 22:26] VITALS: RESP 18
== END 2019-06-24 22:27 | disposition home or self-care (01) ==
PROVIDERS: Emergency Provider Emergency Medicine
DX: R10.9 Unspecified abdominal pain (principal); R11.0 Nausea; M54.9 Dorsalgia, unspecified; R51 Headache; F32.9 Major depressive disorder, single episode, unspecified; F41.9 Anxiety disorder, unspecified; E66.9 Obesity, unspecified; Z79.899 Other long term (current) drug therapy; Z87.442 Personal history of urinary calculi; Z90.49 Acquired absence of other specified parts of digestive tract
CPT/HCPCS: 74176; 81001; 99282

== ENCOUNTER → 2020-01-01 06:27 | Outpatient (CLI) | payer OTHER, SELFPAY ==
[2020-01-01 08:01] LABS: Follicle Stimulating Hormone 5.3 mIU/mL; Luteinizing Hormone 2.6 mIU/mL; PSA,Total - Annual Screen 0.26 ng/mL (0.00-4.00)
== END ==
PROVIDERS: Visit Provider Nurse Practitioner Adult Health
DX: N52.8 Other male erectile dysfunction (principal); E29.1 Testicular hypofunction; Z12.5 Encounter for screening for malignant neoplasm of prostate
CPT/HCPCS: 36415; 83001; 83002; 84153; 84403; G0103

== ENCOUNTER 2020-01-29 09:47 | Observation (INO) | payer OTHER, SELFPAY ==
[2020-01-29] VITALS (7 sets, daily range): BP systolic 142–161; BP diastolic 90–117; PULSE 73–85; RESP 10–19; TEMP 36.4–36.9; O2SAT 96–98; BMI 34.4; BMI 33.7
--- NOTE | 2020-01-29 09:55 | EKG12_ITS ---
Test Reason : CP Blood Pressure : / mmHG Vent. Rate : 082 BPM Atrial Rate : 082 BPM P-R Int : 142 ms QRS Dur : 084 ms QT Int : 378 ms P-R-T Axes : 022 -02 000 degrees QTc Int : 441 ms Normal sinus rhythm Poor R wave progression Inferior WI, age undetermined, cannot be excluded Confirmed by MIRIAN BELCHER, LINO ([id number]), book editor LISSETT PAGE ([id number]) on 02/01/2020 3:32:32 PM Referred By: CHARY/DANA Confirmed By:LINO VELA MD
--- NOTE | 2020-01-29 09:55 | RAD_ITS ---
STUDY: X-RAY CHEST REASON FOR EXAM: Male, 54 years old. CHEST PAIN SINCE LAST NIGHT, HEAVINESS TECHNIQUE: Single AP portable view of the chest. COMPARISON: Comparison is made with prior study dated 12/06/2018. FINDINGS: EKG electrodes are seen. The lungs are clear and expanded. There is no demonstrated pleural abnormality. There is borderline cardiomegaly. Normal mediastinum and won. Normal visualized pulmonary arteries. Normal visualized aortic arch and descending thoracic aorta. There are mild degenerative changes of the visualized thoracic spine. Normal visualized ribs, clavicles, and shoulders. Moderate sized hiatal hernia. RAD/Chest 1 View (Portable) IMPRESSION: Stable examination. Moderate-sized hiatal hernia. Electronically Signed: Silvio Hawkins, at 10:47 EDT , Service support ,
--- NOTE | 2020-01-29 10:02 | ED.DCSUM_ITS ---
History of Present Illness Chief Complaint: Chest Pain Narrative: Patient is a 54-year-old male who states he has no past medical problems who presents to the emergency department for chest pain. This started last night. It hit him all of a sudden no describes as a 9 out of 10 pain substernal. He states that occasionally coughing did make the symptoms worse. The symptoms have started to get better and he currently rates them as a 3 out of 10. Feels like it is deep to his sternum. He did have some pain go up his neck and down his arms bilaterally. He has no history of heart attacks, strokes or DVT/PE. He has had a mild cough over the past week that is been productive of a clear sputum. No fevers. He did not have any associated nausea/vomiting or diaphoresis. He has had some mild peripheral edema in his bilateral lower extremities over the past month. He states he has been feeling very fatigued lately. No known coronavirus exposures. Patient denies smoking cigarettes but states he does smoke cigars occasionally. Denies any issues with drugs. Is a social drinker. Past Medical History - Allergies and Home Meds Allergies/Adverse Reactions: Allergies sertraline [From Zoloft] Allergy (Verified 02/10/19 20:20) Other Past Medical History: None Surgical History: - - Hiatal hernia repair Smoking Status: Current some day smoker Alcohol: Occasional Drugs: None - Family History Maternal Family History: Family History (Last Updated 01/29/20 @ 14:[address] Silverio Trujillo, DO) Grandmother Heart disease Review of Systems All systems negative except as indicated General: Denies: Chills, Fever, Sweats Eyes: Denies: Visual changes - bilaterally, Diplopia ENT: Denies: Rhinorrhea, Sore throat Cardiovascular: Reports: Chest pain. Denies: Palpitations Respiratory: Reports: Cough, Sputum. Denies: Dyspnea, Dyspnea on exertion Gastrointestinal: Denies: Abdominal pain, Nausea, Vomiting, Diarrhea Genitourinary: Denies: Dysuria, Hematuria, Frequency Musculoskeletal: Denies: Back pain, Extremity Pain Skin: Denies: Rash, Wounds Neurological: Denies: Headache, Weakness, Numbness Physical Exam Vital Signs/Narrative: Vital Signs Temp Pulse Resp BP Pulse Ox 01/29/20 09:48 98.5 F 85 10 L 161/117 H 98 Inital Vital Signs reviewed: Yes General: Well nourished, Well developed, No Acute Distress Head: Normocephalic, Atraumatic Eyes: Perrl, EOMI ENT: Moist mucous membranes, No rhinorrhea Neck: Supple, Nontender Cardiovascular: Regular rate, Regular rhythm, No murmurs Respiratory: No distress, CTA bilaterally, Chest nontender Abdomen: Soft, Nontender, Nondistended, Normal bowel sounds Back: Nontender, Normal Inspection Extremities: Nontender, No edema, Edema - Trace bilateral lower extremities.. Negative for: Calf Tenderness Skin: Normal color, No rash Neurological: Alert, Oriented x3, Cranial nerves II-XII grossly intact, Normal Strength, Normal Sensation Psychological: Normal affect, Normal Mood Diagnostic/Tx/Re-eval - EKG Initial EKG Interpretation: - - Rate of 82 bpm and normal sinus rhythm. Normal intervals. Normal axis. No ST elevations or depressions appreciated. No T wave abnormalities. No prior EKG for comparison. - Medical Decision Making Patient presents to the emerge department for chest pain. Upon arrival to the emerge department vital signs within normal limits. Does not appear in any acute distress. EKG, chest x-ray basic lab work being obtained. He has had a mild cough over the past week productive of sputum so we will do a COVID screen. Patient given a dose of aspirin here in the emergency department. Patient states that his pain would radiate into his back. That time we did perform a CTA to evaluate aorta. No signs of dissection or pulmonary embolism. He does have a large hiatal hernia. He states that he has previously had this repaired. Potentially this could be what is causing his symptoms. This could have recurred over the past week given his recent cough. Coronavirus test is currently pending. I do have him at a heart score of 4 given his many risk factors, age and moderate suspicion. Will bring into the hospital for further evaluation and management. He has been stable throughout ED stay. He is agreeable to staying in the hospital at this time. ED Disposition - Plan for ED Patient: Disposition: Acute Care [facility] Diagnosis: Atypical chest pain, Hiatal hernia
[2020-01-29 10:06] LABS: Absolute Lymphocyte Count 1.29 X10^3/uL (0.83-4.51); Absolute Neutrophil Count 6.4 X10^3/uL (2.0-7.7); Basophil# 0.02 X10^3/uL; Basophil% 0.2 % (0-1); Eosinophil# 0.04 X10^3/uL; Eosinophils% 0.5 % (0-5); Hematocrit 46.9 % (40-54); Hemoglobin 15.5 g/dL (13.0-16.5); Lymphocyte # 1.29 X10^3/ul (4.0); Lymphocyte % 14.8 % (19-41); Mean Corpuscular Hgb 30.2 pg (27.0-32.0); Mean Corpuscular Volume 91.2 fL (80-94); Mean Platelet Vol. 9.8 fl (6.2-12.0); Monocyte# 0.93 X10^3/uL; Monocyte% 10.7 % (0-10); NRBC Flagged by Analyzer 0 % (0-5); Neutrophil # 6.36 X10^3/uL (2.7-7.7); Neutrophil % 73.2 % (47-70); Platelet Count 231 K/mm3 (150-450); RBC Distribution Width CV 12.7 % (11.6-14.6); RBC Distribution Width SD 41.9 fl (35.1-43.9); Red Blood Count 5.14 M/mm3 (4.6-6.2); White Blood Count 8.7 K/mm3 (4.4-11.0)
[2020-01-29] MEDS: Aspirin 81 MG TAB.CHEW 324 MG PO (10:07)
[2020-01-29 10:38] LABS: Anion Gap 5 (5-15); BUN 12 mg/dL (7-18); Chloride 107 mmol/L (98-107); Creatinine, Serum 0.86 mg/dL (0.70-1.30); EST Glomerular Filtration Rate 98 mL/min (>60); Est Glom Filt Rate - Afr Amer 119 mL/min (>60); Estimated Creatinine Clearance 91.81 ml/min; Glucose 95 mg/dL (74-106); Magnesium 2.1 mg/dL (1.6-2.6); Sodium Level 139 mmol/L (136-145)
--- NOTE | 2020-01-29 11:50 | CT_ITS ---
STUDY: CTA CHEST REASON FOR EXAM: Male, 54 years old. CP RADIATING INTO BACK, STERNAL PAIN, COUGH RADIATION DOSAGE (If Supplied By Facility): CTDIvol = ( 11.28 ) mGy, DLP = ( 509.88 ) mGycm TECHNIQUE: The examination was performed with the intravenous administration of IV 100mL Isovue-370. Post-processing of the angiographic images was performed, with multiplanar reformation and 3D reconstruction. Individualized dose optimization techniques were used for this CT. COMPARISON: None. FINDINGS: Normal enhancement of the main pulmonary artery and right and left pulmonary arteries. Normal enhancement of the bilateral peripheral pulmonary arteries. There is no demonstrated pulmonary embolism. Normal thoracic aorta and visualized great vessels. There is no demonstrated aortic dissection. Normal heart and pericardium. There are visualized mediastinal lymph nodes, which are within normal size limits, and with normal morphology. Normal hilar regions. Normal visualized trachea and bronchi. The lungs are well expanded. Minimal increased linear markings in the anterior aspect of the right lower lobe as well as in the posterior aspect of the lingular segment of the left upper lobe suggestive of underlying atelectasis and/or scarring. Normal pleura. Normal chest wall structures. There are degenerative changes of thoracic spine. The patient is status post cholecystectomy. Large hiatal hernia. CT/CTA Chest W/WO Contrast IMPRESSION: No evidence of pulmonary embolism. Large ventral hernia. Mild increased markings in the right lower lobe as well as the lingular segment of the left upper lobe suggestive of linear atelectasis. Electronically Signed: Silvio Hawkins, at 12:43 EDT , Service support ,
--- NOTE | 2020-01-29 13:56 | NURSING ---
gerardou cp obs snehal
--- NOTE | 2020-01-29 14:35 | HP.PCM_ITS ---
Problem List (1) Chest pain Status: Acute Qualifiers: Chest pain type: unspecified Qualified Code(s): R07.9 - Chest pain, unspecified History of Present Illness Date of Admission: 01/29/20 Chief Complaint: chest pain The patient is a 54 year old M who was in his normal state of health and then last night started having chest pain. Chest pain was midsternal going to his back and was very intense. Persisted throughout the night and became less severe today but at his spouse's urging, presented to the hospital. Patient denies ever having had chest pain like this before. Patient's work-up in the emergency room, including CT of the chest, chest x-ray, EKG and lab work were unremarkable. [] Past Medical History Medical History: Medical History (Last Updated 01/29/20 @ 14:[address] Silverio Trujillo DO) Depression F32.9 IBS (irritable bowel syndrome) K58.9 Allergies sertraline [From Zoloft] Allergy (Verified 02/10/19 20:20) Other Home Medications: Ambulatory Orders Medication Instructions Recorded Paroxetine [Paxil] 20 mg PO DAILY 01/29/20 Surgical History: - - Hiatal hernia repair Lives: Spouse/ Significant Other Smoking Status: Current some day smoker Tobacco Use: Cigars Alcohol: Occasional Drugs: None - *Family History Maternal Family History: Family History (Last Updated 01/29/20 @ 14:[address] Silverio Trujillo DO) Grandmother Heart disease Review of Systems Constitutional: Denies: Anorexia, Chills, Fever, Night Sweats Eyes: Denies: Blurred vision, Double vision HEENT: Denies: Head Aches, Sinus Congestion, Sinus Drainage Cardiovascular: Reports: Chest Pain. Denies: Palpitations Respiratory: Denies: Cough, Shortness of breath at rest, Sputum production Gastrointestinal: Reports: Diarrhea. Denies: Abdominal Pain, Nausea, Vomiting Genitourinary: Denies: Dysuria Musculoskeletal: Denies: Joint Pain, Joint Tenderness Skin: Denies: Dryness, Jaundice Comment: All review of systems were negative except as mentioned above in the history of present illness and the other review of systems. VTE Information - Inpt Only VTE Present on Admission: No VTE Mechan Device Prophylaxis: None VTE Pharm Prophylaxis ordered?: No Reason prophylaxis not ordered:: Treatment Not Indicated Patient Problems: Active and Suspected Problems (Last Updated 01/29/20 @ 14:[address] Silverio Trujillo, DO) Chest pain (Acute) - Physical Exam Vitals/I&O's: Vital Signs Temp Pulse Resp BP Pulse Ox 36.9 C 74 18 157/111 H 98 01/29/20 09:48 01/29/20 11:22 01/29/20 11:22 01/29/20 11:22 01/29/20 11:22 Oxygen Delivery Method Room Air Weight: 99.8 kg Body Mass Index (BMI) 34.4 General: Alert, No apparent distress HEENT: Atraumatic, Normocephalic Oral: Moist Mucosa, No Gingival or Mucosal Lesions/ Ulcerations Neck: No Nodes, Thyroid Normal Size and Texture Lungs: Clear to auscultation, Normal air movement, No rhonchi, No wheeze, No rales Cardiovascular: Regular rate, Regular Rhythm, Normal S1, Normal S2, No murmurs Abdomen: Bowel Sounds Present, Soft, Non Tender, Non-Distended, No Hepato- splenomegaly Extremities: No edema, No Calf Tenderness Skin: No rashes, No breakdown Musculoskeletal: No Tenderness to Palpation of Joints or Extremities, No Muscle Wasting Neurological: Muscle tone normal, - - no clonus Psych/Mental Status: Normal Affect, Appropriate Laboratory Results 01/29/20 09:15: WBC 8.7, RBC 5.14, Hgb 15.5, Hct 46.9, MCV 91.2, MCH 30.2, MCHC 33.0, RDW Std Deviation 41.9, RDW Coeff of Ronnell 12.7, Plt Count 231, MPV 9.8, Immature Gran % (Auto) 0.600, Neut % (Auto) 73.2 H, Lymph % (Auto) 14.8 L, [place] % (Auto) 10.7 H, Eos % (Auto) 0.5, Baso % (Auto) 0.2, Absolute Neuts (auto) 6.4, Absolute Lymphs (auto) 1.29, Nucleated RBC % 0 01/29/20 09:15: Sodium 139, Potassium 4.0, Chloride 107, Carbon Dioxide 27.0, Anion Gap 5, BUN 12, Creatinine 0.86, Estim Creat Clear Calc 91.81, Est GFR (MDRD) Af Amer 119, Est GFR (MDRD) Non-Af 98, BUN/Creatinine Ratio 14.0, Glucose 95, Calcium 9.0, Magnesium 2.1, Troponin I < 0.015 01/29/20 11:15: COVID-19 ([facility]) Not Detected CT of the chest reviewed and showed no pulmonary embolism nor infiltrate. EKG reviewed and showed normal sinus rhythm with no acute changes. Unchanged from April 2015. Assessment/Plan All Active Problems (Last Updated 01/29/20 @ 14:[address] Silverio Trujillo, DO) Chest pain (Acute) 1. Chest pain * Atypical. * JANY score of 1, Adriana score of 145. * Patient received 324 mg of aspirin in the emergency room. We will continue with 81 for now. Discussed with the patient and he states that he would be able to complete a treadmill echocardiogram. So plan is to do a treadmill stress test the fourth. * No evidence of any dissection or pulmonary embolism on CTA. 2. VTE prophylaxis: Not indicated. 3. Advanced care planning: Discussed with the patient. Patient wishes to be full CODE STATUS at this time OBSV E&M: [id number] Initial observation care L3
--- NOTE | 2020-01-29 15:42 | EKG12_ITS ---
Test Reason : CP ADMISSION Blood Pressure : / mmHG Vent. Rate : 069 BPM Atrial Rate : 069 BPM P-R Int : 150 ms QRS Dur : 086 ms QT Int : 396 ms P-R-T Axes : 022 -01 004 degrees QTc Int : 424 ms Normal sinus rhythm Normal ECG When compared with ECG of 03-MAY-2015 01:38, No significant change was found Confirmed by GIULIA BELCHER, ALDO ([id number]), editor book LISSETT PAGE ([id number]) on 02/01/2020 3:55:50 PM Referred By: STELLA Confirmed By:ALDO PLATT MD
[2020-01-29] MEDS: Acetaminophen 325 MG Tablet 650 MG PO (19:49)
[2020-01-30 02:59] VITALS: PULSE 78
[2020-01-30 03:42] VITALS: BP 141/92; PULSE 73; RESP 16; TEMP 36.4; O2SAT 95
[2020-01-30] MEDS: Aspirin E.C. 81 MG Tablet PO (05:28)
--- NOTE | 2020-01-30 05:55 | EKG12_ITS ---
Test Reason : AM EKG Blood Pressure : / mmHG Vent. Rate : 071 BPM Atrial Rate : 071 BPM P-R Int : 150 ms QRS Dur : 090 ms QT Int : 398 ms P-R-T Axes : 030 014 011 degrees QTc Int : 432 ms Normal sinus rhythm Inferior infarct , age undetermined , cannot be excluded Abnormal ECG Confirmed by MIRIAN BELCHER, LINO ([id number]), medical transcription editor LISSETT PAGE ([id number]) on 02/01/2020 3:41:21 PM Referred By: DR DOUGLAS Confirmed By:LINO VELA MD
--- NOTE | 2020-01-30 05:55 | STEWCON_ITS ---
Reason For Study: CHEST PAIN Stress Results Protocol: Stress Echocardiogram Maximum Predicted HR: 166 bpm Target HR: 141 bpm % Maximum Predicted HR: 95 % DurationHeart Rate Stage (mm:ss) (bpm) BP Comment BASELINE 80 158/90DILUTED DEFINITY 6 CC USED DURING STRESS DAVE MPROTOCOL- STAGE 1 3:00 106 164/92DENIES SX DAVE PROTOCOL- STAGE 2 3:00 122 170/88DENIES SX DAVE PROTOCOL- STAGE 3 3:00 141 168/92DYSPNEA DAVE PROTOCOL- STAGE 4 0:30 157 / DYSPNEA, TWINGE OF PAIN OVER R BREAST RECOVERY 108 140/104DENIES SX Stress Duration: 9:30 mm:ss Maximum Stress HR: 157 bpm METS: 11 Baseline Echocardiogram Findings Stress Echo Wall motion Data Resting WM Intermediate WM Stress WM Resting Wall Motion Wall Motion Stress All segments Normal. All segments Hyperkinetic. Ejection Fraction 55 %. Ejection Fraction 65 %. Stress Results Heart rate response: Appropriate Blood pressure response: Resting hypertension-normal response Arrhythmias: None Functional capacity: Good Stopped secondary to: Dyspnea. EKG Data Baseline ECG: Normal sinus rhythm. Peak exercise ECG: Somatic/motion artifact with no obvious ECG changes. Symptoms with Stress No complaint of chest discomfort during exercise/recovery considered compatible with angina pectoris. Interpretation Summary 1. Technically difficult study 2. Contrast injection performed 3. Negative (adequate) stress echocardiogram Ordering Physician: Silverio Trujillo Referring Physician: Silverio Trujillo Performed By: Ifrah Lofton, HUSSAIN, RVT
[2020-01-30 06:10] LABS: Cholesterol 166 mg/dL (200); High Density Lipoprotein 41 mg/dL; Triglycerides 122 mg/dL; Very Low Density Lipoprotein 24 mg/dL (5-40)
[2020-01-30 06:30] VITALS: BP 144/80; PULSE 75; RESP 18; TEMP 36.6; O2SAT 95
[2020-01-30 07:00] VITALS: PULSE 75
[2020-01-30] MEDS: Paroxetine 20 MG Tablet PO (09:27)
--- NOTE | 2020-01-30 10:29 | DCINST_ITS ---
- Discharge Diagnoses Current Active Problems: Current Active and Chronic Problems (Last Updated 01/29/20 @ 14:[address] Silverio Trujillo, DO) Chest pain (Acute) Atypical chest pain (Acute) Hiatal hernia (Acute) You will use the following diet at home:: No restrictions Discharge Activity: Return to Normal Activity Call your doctor if you observe: Shortness of breath, Dizziness, Fainting spells, Chest pain Allergies/Adverse Reactions: Allergies sertraline [From Zoloft] Allergy (Verified 02/10/19 20:20) Other Medications to take at Discharge Paroxetine [Paxil] 20 mg PO DAILY 01/29/20 Primary Care Physician: Care Physician,No Primary [Primary Care Provider] - Please follow up with your Primary Care Physician in: 1 Week Test Results: Test results from this visit will be discussed in further detail at your follow- up appointment, if applicable. Proposed Discharge Date: 01/30/20
--- NOTE | 2020-01-30 10:33 | PCM.DC.SUM ---
<Mylene Toussaint - Last Filed: 01/30/20 10:39> Discharge Date and Diagnosis Date of Admission: 01/29/20 Date of Discharge: 01/30/20 - Primary Discharge Diagnosis Acute Problems: Active Problems (Last Updated 01/29/20 @ 14:[address] Silverio Trujillo, DO) 1. Musculoskeletal chest pain 2. Depression Hospital Course and Treatment Imaging Results: Diagnostic Data Chest X-Ray 01/29/20 09:55 IMPRESSION: Stable examination. Moderate-sized hiatal hernia. Electronically Signed: Silvio Hawkins, at 10:47 EDT , Service support , Chest CTA 01/29/20 11:50 IMPRESSION: No evidence of pulmonary embolism. Large ventral hernia. Mild increased markings in the right lower lobe as well as the lingular segment of the left upper lobe suggestive of linear atelectasis. Electronically Signed: Silvio Hawkins, at 12:43 EDT , Service support , Operations: None Procedures: Stress test Summary of Care Provided: The patient is a 54 year old M admitted 01/29/2020 due to chest pain. 1. Musculoskeletal chest pain-troponin negative. EKG without ST-T changes. Patient underwent stress echo which was negative for ischemia. Patient reports swinging a heavy hammer during the day prior to onset of chest and shoulder blade pain. He states his upper back was also sore the next day. Blood pressure mildly elevated during admission. Patient states blood pressure is typically controlled at home. Recommended further blood pressure monitoring at home and follow-up with PCP. Follow-up with PCP in 1 week. 2. Depression-continue Paxil regimen. Patient seen and examined prior to discharge. Physical assessment as noted below. Patient is stable for discharge with follow up recommendations as noted above. This patient was seen by MONROE Molina under the supervision of Dr. Trujillo. - Physical Exam Vitals/I&O's: Vital Signs Temp Pulse Resp BP Pulse Ox 97.9 F 75 18 144/80 H 95 01/30/20 06:30 01/30/20 07:00 01/30/20 06:30 01/30/20 06:30 01/30/20 06:30 Oxygen Delivery Method Room Air Weight: 215 lb 6.266 oz Body Mass Index (BMI) 33.7 Intake and Output for Last 24 Hours 01/28/20 01/29/20 01/30/20 23:59 23:59 23:59 Intake Total 490 / 490 0 / 0 Balance 490 / 490 0 / 0 General: Alert, Oriented x3, Cooperative HEENT: Atraumatic, PERRLA, EOMI, Normocephalic Neck: Supple, No JVD, Negative Carotid Bruits Lungs: Clear to auscultation, Normal air movement Cardiovascular: Regular rate, Regular Rhythm, Normal S1, Normal S2, No murmurs Abdomen: Bowel Sounds Present, Soft, Non Tender, Non-Distended Extremities: No clubbing, No cyanosis, No edema, Capillary Refill Less than 3 Seconds Skin: No rashes, No breakdown Musculoskeletal: No Tenderness to Palpation of Joints or Extremities Neurological: Cranial nerves II-XII grossly intact, Neuro grossly intact Psych/Mental Status: Normal Affect, Appropriate Laboratory Results 01/29/20 09:15: Sodium 139, Potassium 4.0, Chloride 107, Carbon Dioxide 27.0, Anion Gap 5, BUN 12, Creatinine 0.86, Estim Creat Clear Calc 91.81, Est GFR (MDRD) Af Amer 119, Est GFR (MDRD) Non-Af 98, BUN/Creatinine Ratio 14.0, Glucose 95, Calcium 9.0, Magnesium 2.1, Troponin I < 0.015 01/29/20 11:15: COVID-19 ([facility]) Not Detected 01/29/20 16:00: Troponin I < 0.015 01/29/20 18:24: Troponin I < 0.015 01/30/20 05:30: Triglycerides 122, Cholesterol 166, LDL Cholesterol 101, VLDL Cholesterol 24, HDL Cholesterol 41 Current Medications Acetaminophen (Tylenol) 650 mg PO Q6H PRN PRN PRN Reason: Pain Score 1-10/Temp > 100.7 F Last Admin: 01/29/20 19:49 Dose: 650 mg Documented by: Aspirin (Ecotrin) 81 mg PO DAILY@0800 OSKAR Last Admin: 01/30/20 05:28 Dose: 81 mg Documented by: Ondansetron HCl (Zofran) 4 mg IV Q8H PRN PRN PRN Reason: NAUSEA/VOMITING Paroxetine HCl (Paxil) 20 mg PO DAILY COUNT INCLUDES THE [facility] Last Admin: 01/30/20 09:27 Dose: 20 mg Documented by: Sodium Chloride () 10 - 40 ml IV UD PRN PRN Reason: SALINE FLUSH Discharge Diet: No Restrictions Discharge Activity: Return to Normal Activity Call your doctor if you observe: Shortness of breath, Dizziness, Fainting spells, Chest pain Home Medications: Medications to take at Discharge Paroxetine [Paxil] 20 mg PO DAILY 01/29/20 Primary Care Physician: Care Physician,No Primary [Primary Care Provider] - Please follow up with your Primary Care Physician in: 1 Week Disposition: Home Minutes spent on discharge:: 35 Patient Condition:: Stable Medical Necessity - Tobacco Use Smoking Status: Current some day smoker Tobacco Use: Cigars Meaningful Use Info Meaningful Use Diagnoses (Choose all that apply): None applicable <Silverio Trujillo - Last Filed: 01/30/20 13:38> Hospital Course and Treatment Imaging Results: 01/30/20 05:55 Stress Test Echo W/Contrast [ECHO] AM (NON MEDS) Operations: None Procedures: Stress test Summary of Care Provided: Patient seen and examined independently. Data reviewed. I agree with the above note by the nurse practitioner. The patient is a 54 year old M presents with chest pain. Woke up with the symptoms went to his back. Patient underwent a cardiac work-up that was unremarkable including a stress test. Is feeling of this physician that the chest pain is likely musculoskeletal. Patient endorsed that he, couple days prior, was trying to take some ribs off of a car and was requiring some wrenching motions with that. Though that was 2 days prior is unclear that was directly correlated with his chest pain that he presented with but given no other etiology could be identified or suspected may be more musculoskeletal in presentation. He did have a CTA of his chest that showed no dissection nor pulmonary embolism. Patient does have a history of nisin fundoplication but clinically I do not feel that there is any decompensation of that. [] - Physical Exam Vitals/I&O's: Vital Signs Temp Pulse Resp BP Pulse Ox 36.6 C 75 18 144/80 H 95 01/30/20 11:03 01/30/20 11:03 01/30/20 11:03 01/30/20 11:03 01/30/20 11:03 Oxygen Delivery Method Room Air Weight: 97.7 kg Body Mass Index (BMI) 33.7 Intake and Output for Last 24 Hours 01/28/20 01/29/20 01/30/20 23:59 23:59 23:59 Intake Total 490 / 490 0 / 0 Balance 490 / 490 0 / 0 General: Alert, Cooperative HEENT: Atraumatic, Normocephalic Psych/Mental Status: Normal Affect, Appropriate Laboratory Results 01/29/20 11:15: COVID-19 ([facility]) Not Detected 01/29/20 16:00: Troponin I < 0.015 01/29/20 18:24: Troponin I < 0.015 01/30/20 05:30: Triglycerides 122, Cholesterol 166, LDL Cholesterol 101, VLDL Cholesterol 24, HDL Cholesterol 41 Discharge Diet: No Restrictions Discharge Activity: Return to Normal Activity Call your doctor if you observe: Shortness of breath, Dizziness, Fainting spells, Chest pain Disposition: Home Minutes spent on discharge:: 35 Patient Condition:: Stable Medical Necessity - Tobacco Use Smoking Status: Current some day smoker Tobacco Use: Cigars Meaningful Use Info Meaningful Use Diagnoses (Choose all that apply): None applicable OBSV E&M: 61342 Observation care discharge
--- NOTE | 2020-01-30 10:47 | PHA.DC.MR ---
Pharmacy Service has performed discharge medication reconciliation for this patient. The patient's discharge medication list was reviewed for discrepancies and discrepancies were resolved. Home Medications Paroxetine [Paxil] 20 mg PO DAILY 01/29/20
[2020-01-30 11:03] VITALS: BP 144/80; PULSE 75; RESP 18; TEMP 36.6; O2SAT 95
--- NOTE | 2020-01-30 11:10 | PCM.WORK.EX ---
Work/School Excuse Work/School Excuse for:: Patient Please excuse this person from:: Work From: 01/29/20 through: 01/30/20 - October return 01/31/2020
--- NOTE | 2020-01-30 12:02 | CHAPLAIN ---
Type of Pastoral Visit _x__ Initial Visit ___ Follow-up Visit ___ On-call Visit ___ General Patient Visit ___ Spiritual Assessment ___ Family Conference ___ Bereavement ___ Rapid Response ___ Code Blue ___ Other (describe below) Pastoral Care Referral From _x__ Patient ___ Family ___ Nurse ___ Physician ___ Car Mechanic Helper ___ Gasoline Truck Operator ___ Other (describe below) Sacrament/Intervention _x__ Active listening ___ Anointing ___ Latter Day ___ Bereavement ___ Communion ___ Amy exploration ___ _x__ Life review _x__ Prayer ___ Reconciliation ___ Sacrament of Sick _x__ Supportive presence ___ Wedding ___ Other (describe below) Pastoral Comments patient was very talkative starting with his health need but moving into his personal family issues; pt will be discharged soon
== END 2020-01-30 10:29 | disposition home or self-care (01) ==
LOC: ED 10:36 → PCU 15:00
PROVIDERS: Emergency Provider Emergency Medicine
DX: R07.89 Other chest pain (principal); F17.290 Nicotine dependence, other tobacco product, uncomplicated; R60.0 Localized edema; K44.9 Diaphragmatic hernia without obstruction or gangrene; F32.9 Major depressive disorder, single episode, unspecified; Z79.899 Other long term (current) drug therapy; K58.9 Irritable bowel syndrome, unspecified
CPT/HCPCS: 36415; 71045; 71275; 80048; 80061; 83735; 84484; 85025; 87635; 93005; 93017; 93350; 94799; 99218; 99285; 99406; Q9957; Q9967; A4216; C8928; G0378; U0003

== ENCOUNTER 2020-05-19 17:28 | Emergency (ER) | payer OTHER, SELFPAY ==
[2020-01-29 15:32] VITALS: BMI 33.7
[2020-05-19 17:31] VITALS: BP 156/102; PULSE 97; RESP 17; TEMP 36.2; O2SAT 96; BMI 34.0
--- NOTE | 2020-05-19 18:03 | ED.VISSUMM ---
- ER Visit Summary Date of Service: 05/19/20 Chief Complaint: Nausea and vomiting, question coffee-ground emesis History of Present Illness: The patient is a 55 M Struve pressure ulcer. No heavy bleeding in the past. Medication for anxiety and depression. Prior hiatal hernia surgery. Patient states today to get up from a nap with nausea vomiting question coffee-ground material. Denies any fever chills. Denies any melena. Denies any diarrhea or black stool. Denies any abdominal pain. Physical Examination: Middle-aged male no acute distress vital signs stable afebrile. HEENT exam unremarkable. Neck nontender. Lungs clear to auscultation bilaterally. Heart regular rhythm no murmur. Abdomen soft nontender normal bowel sounds no peritoneal signs. No tenderness whatsoever. Both the right upper and right lower quadrants are unremarkable. Epigastric region is nontender. Extremities moves all 4. No edema. Neurologically is awake and alert with no focal motor deficits. Rectal exam. Nontender. No mass. Loose brown stool. No gross blood. No melena. Test Results: CBC shows normal white count of 9. Hemoglobin is 16. Chemistries normal normal creatinine and gap. Liver enzymes normal. Lipase normal at 64. Repeat exam nausea is improved with the Zofran. He has had no signs of hematemesis here. He had negative stool on rectal exam for blood. Emergency Department Course and Treatment: Patient with nausea and vomiting x2 with questionable coffee-ground material. Rectal exam was negative. Screening labs being obtained. Zofran for nausea. Treatment Plan: Discharged home. Follow-up with his primary care physician. Started on Protonix. Zofran for nausea. Disposition: Discharge Impression: Acute nausea and vomiting No signs of GI bleed This note was generated with [employer] dictation software. It may contain incorrect words, spelling, and punctuation that were not noted in review of the chart prior to signing ED Disposition - Plan for ED Patient: Referrals: Care Physician,No Primary [Primary Care Provider] -
[2020-05-19] MEDS: Ondansetron 4 MG/2 ML Vial IV (18:09)
[2020-05-19 18:18] LABS: Absolute Lymphocyte Count 2.31 X10^3/uL (0.83-4.51); Basophil# 0.04 X10^3/uL; Basophil% 0.4 % (0-1); Eosinophil# 0.25 X10^3/uL; Eosinophils% 2.5 % (0-5); Hematocrit 50.1 % (40-54); Hemoglobin 16.1 g/dL (13.0-16.5); Lymphocyte # 2.31 X10^3/ul (4.0); Lymphocyte % 23.5 % (19-41); Mean Corp Hgb Conc 32.1 g/dL (32-36); Mean Corpuscular Hgb 29.7 pg (27.0-32.0); Mean Corpuscular Volume 92.3 fL (80-94); Mean Platelet Vol. 9.8 fl (6.2-12.0); Monocyte# 1.24 X10^3/uL; Monocyte% 12.6 % (0-10); NRBC Flagged by Analyzer 0 % (0-5); Neutrophil # 5.95 X10^3/uL (2.7-7.7); Neutrophil % 60.7 % (47-70); Platelet Count 262 K/mm3 (150-450); RBC Distribution Width CV 12.9 % (11.6-14.6); RBC Distribution Width SD 43.5 fl (35.1-43.9); Red Blood Count 5.43 M/mm3 (4.6-6.2); White Blood Count 9.8 K/mm3 (4.4-11.0)
[2020-05-19 18:36] LABS: AST(SGOT) 10 U/L (15-37); Alanine Aminotransfer ALT/SGPT 23 U/L (16-61); Albumin, Serum 4.1 g/dL (3.2-5.0); Alkaline Phosphatase 75 U/L (45-117); Anion Gap 8 (5-15); BUN 17 mg/dL (7-18); BUN/Creat Ratio 18.1 RATIO (10-20); Calcium,Total 9.1 mg/dL (8.5-10.1); Chloride 104 mmol/L (98-107); Creatinine, Serum 0.94 mg/dL (0.70-1.30); EST Glomerular Filtration Rate 89 mL/min (>60); Est Glom Filt Rate - Afr Amer 107 mL/min (>60); Estimated Creatinine Clearance 83.02 ml/min; Glucose 114 mg/dL (74-106); Lipase 64 U/L (73-393); Protein, Total 8.1 g/dL (6.4-8.2); Sodium Level 141 mmol/L (136-145)
[2020-05-19 18:56] VITALS: BP 169/112; PULSE 90; RESP 18
--- NOTE | 2020-05-19 19:37 | ED.DEP ---
ED Disposition - Plan for ED Patient: Disposition: Home or Assisted Living Instructions: ED Nausea Vomiting Adult Prescriptions: Pantoprazole Sodium [Protonix] 20 mg PO DAILY #20 tab Prescription Printed Ondansetron [Zofran Odt] 4 mg PO Q8H PRN PRN #7 tab PRN Reason: Nausea Prescription Printed Referrals: Care Physician,No Primary [Primary Care Provider] - As soon as possible Additional Instructions: All your labs were normal today.. No signs of blood loss. Zofran as needed for nausea. Protonix for possible stomach irritation or an ulcer. Follow-up your primary care physician if not improving they can always get a scope. If you throw up bright red blood or black stool you need to be seen the nearest emergency department.
[2020-05-19 19:54] VITALS: BP 163/105; PULSE 80; RESP 16
== END 2020-05-19 19:55 | disposition home or self-care (01) ==
PROVIDERS: Emergency Provider Emergency Medicine
DX: R11.2 Nausea with vomiting, unspecified (principal); F32.9 Major depressive disorder, single episode, unspecified; F41.9 Anxiety disorder, unspecified
CPT/HCPCS: 80053; 83690; 85025; 96374; 99283; J7030; A4216; J2405